=== PATIENT | female | born 1985 | race Asian ===

== ENCOUNTER 2017-12-22 21:14 | Emergency (ER) | payer OTHER ==
[~2017-12-22] VITALS: Ht 149.9 cm; Wt 58.2 kg
[2017-12-22] MEDS ORDERED: ALBU8.5H8 IH (21:26)
[2017-12-22] MEDS ORDERED: LORA10TA7 PO (21:26)
[2017-12-22] MEDS ORDERED: BECL10.6 IH (21:26)
[2017-12-22] MEDS ORDERED: IPRATROPIUM BROMIDE 0.5 MG/2.5 ML NEB SOLUTION NEB ONE (21:30)
[2017-12-22] MEDS ORDERED: ALBUTEROL SULFATE 5 MG/ML 20 ML NEB SOLN [BULK] NEB ONE (21:30)
[2017-12-22] MEDS ORDERED: 0.9% SODIUM CHLORIDE 5 ML NEB SOLUTION NEB ONE (21:34)
[2017-12-22] MEDS ORDERED: DEXAMETHASONE SOD PHOS 4 MG/ML 5 ML VIAL IM ONE (21:45)
[2017-12-22 22:59] VITALS: BP 136/78
== END 2017-12-22 23:00 | disposition home or self-care (01) ==
LOC: EMS 21:14
DX: J45.909 Unspecified asthma, uncomplicated (principal); Z88.1 Allergy status to other antibiotic agents; Z79.899 Other long term (current) drug therapy
CPT/HCPCS: 94644; 96372; 99285; J1100

== ENCOUNTER 2018-01-04 06:23 | Emergency (ER) | payer OTHER ==
[~2018-01-04] VITALS: Ht 149.9 cm; Wt 68.2 kg
[~2018-01-04 06:23] MED LIST: ALBU8.5H8 IH; BECL10.6 IH; LORA10TA7 PO
[2018-01-04] MEDS ORDERED: AUD NEB (06:34)
[2018-01-04] MEDS ORDERED: ALBUTEROL SULFATE 5 MG/ML 20 ML NEB SOLN [BULK] NEB ONE (07:00)
[2018-01-04] MEDS ORDERED: IPRATROPIUM BROMIDE 0.5 MG/2.5 ML NEB SOLUTION NEB ONE (07:00)
[2018-01-04] MEDS ORDERED: PredniSONE 20 MG TABLET PO ONE ×2 (07:00→07:15)
[2018-01-04 08:03] VITALS: BP 130/87
== END 2018-01-04 08:50 | disposition home or self-care (01) ==
LOC: EMS 06:23
DX: J45.901 Unspecified asthma with (acute) exacerbation (principal); Z88.8 Allergy status to other drugs, medicaments and biological substances
CPT/HCPCS: 94644; 99285; J7512

== ENCOUNTER 2018-11-30 07:21 | Emergency (ER) | payer OTHER ==
[~2018-11-30] VITALS: Ht 149.9 cm; Wt 67.3 kg
[~2018-11-30 07:21] MED LIST changes: +AUD NEB
[2018-11-30] MEDS ORDERED: ALBUTEROL SULFATE 2.5 MG/0.5 ML NEB SOLUTION NEB ONE (07:30)
[2018-11-30] MEDS ORDERED: IPRATROPIUM BROMIDE 0.5 MG/2.5 ML NEB SOLUTION NEB ONE ×2 (07:30→07:45)
[2018-11-30] MEDS ORDERED: PredniSONE 20 MG TABLET PO ONE (07:45)
[2018-11-30] MEDS ORDERED: ALBUTEROL SULFATE 5 MG/ML 20 ML NEB SOLN [BULK] NEB ONE (07:45)
[2018-11-30 09:50] VITALS: BP 128/89
== END 2018-11-30 10:11 | disposition home or self-care (01) ==
LOC: EMS 07:22
DX: J45.909 Unspecified asthma, uncomplicated (principal); Z79.899 Other long term (current) drug therapy; Z88.1 Allergy status to other antibiotic agents
CPT/HCPCS: 71045; 94640; 99285; J7512; 94644

== ENCOUNTER 2019-01-07 06:30 | Emergency (ER) | payer OTHER ==
[~2019-01-07] VITALS: Ht 149.9 cm; Wt 65.9 kg
[2019-01-07] MEDS ORDERED: PredniSONE 20 MG TABLET PO ONE (07:15)
[2019-01-07] MEDS ORDERED: IPRATROPIUM BROMIDE 0.5 MG/2.5 ML NEB SOLUTION NEB ONE (07:15)
[2019-01-07] MEDS ORDERED: ALBUTEROL SULFATE 5 MG/ML 20 ML NEB SOLN [BULK] NEB ONE (07:15)
[2019-01-07] MEDS ORDERED: 0.9% SODIUM CHLORIDE 15 ML NEB SOLUTION NEB ONE (07:54)
[2019-01-07 09:39] VITALS: BP 130/90
== END 2019-01-07 09:49 | disposition home or self-care (01) ==
LOC: EMS 06:30
DX: J45.909 Unspecified asthma, uncomplicated (principal); Z88.1 Allergy status to other antibiotic agents
CPT/HCPCS: 94644; 99285; J7512

== ENCOUNTER 2019-02-01 22:29 | Emergency (ER) | payer MEDICAID, OTHER ==
[~2019-02-01] VITALS: Ht 149.9 cm; Wt 67.3 kg
[2019-02-01] MEDS ORDERED: ALBUTEROL SULFATE 5 MG/ML 20 ML NEB SOLN [BULK] NEB ONE (23:00)
[2019-02-01] MEDS ORDERED: IPRATROPIUM BROMIDE 0.5 MG/2.5 ML NEB SOLUTION NEB ONE (23:00)
[2019-02-02] MEDS ORDERED: PredniSONE 20 MG TABLET PO ONE (01:30)
[2019-02-02 02:00] VITALS: BP 118/78
== END 2019-02-02 02:02 | disposition home or self-care (01) ==
LOC: EMS 22:29
DX: J45.901 Unspecified asthma with (acute) exacerbation (principal); Z79.899 Other long term (current) drug therapy; Z88.1 Allergy status to other antibiotic agents
CPT/HCPCS: 71046; 94640; 99283; J7512

== ENCOUNTER 2022-04-15 15:34 | Emergency (ER) | payer OTHER ==
[~2022-04-15] VITALS: Ht 124.5 cm; Wt 62.3 kg
[2022-04-15] MEDS ORDERED: CETI5TAB12 PO (15:40)
[2022-04-15] MEDS ORDERED: PredniSONE 20 MG TABLET PO ONE (15:45)
[2022-04-15] MEDS ORDERED: GuaiFENesin/D-METHORPHAN [SUGAR-FREE] 200-20MG/10 ML SYRUP UDCUP PO ONE (15:45)
[2022-04-15] MEDS ORDERED: ALBUTEROL SULFATE 2.5 MG/0.5 ML NEB SOLUTION NEB ONE (15:45)
[2022-04-15] MEDS ORDERED: IPRATROPIUM BROMIDE 0.5 MG/2.5 ML NEB SOLUTION NEB ONE (15:45)
[2022-04-15 16:58] LABS: COVID AG,FIA SOURCE NASOPHARYNGEAL
[2022-04-15 17:20] LABS: INFLUENZA TYPE A NEGATIVE FOR TYPE A (NEGATIVE); INFLUENZA TYPE B NEGATIVE FOR TYPE B (NEGATIVE)
[2022-04-15 17:56] VITALS: BP 129/85
[2022-04-15] MEDS ORDERED: PRED-554 PO (18:14)
[2022-04-15] MEDS ORDERED: AUD NEB (18:14)
[2022-04-15] MEDS ORDERED: ALBU8HFA IH (18:14)
[2022-04-15] MEDS ORDERED: GUAIFDM PO (18:14)
== END 2022-04-15 18:30 | disposition home or self-care (01) ==
LOC: EMS 15:36
DX: J45.901 Unspecified asthma with (acute) exacerbation (principal); N39.0 Urinary tract infection, site not specified; Z88.8 Allergy status to other drugs, medicaments and biological substances; Z20.822 Contact with and (suspected) exposure to COVID-19; Z98.890 Other specified postprocedural states
CPT/HCPCS: 99284; 71045; 87426; 87804; 94640; J7512; J7613

== ENCOUNTER 2022-08-08 20:52 | Emergency (ER) | payer OTHER ==
[~2022-08-08] VITALS: Ht 149.9 cm; Wt 60.5 kg
[~2022-08-08 20:52] MED LIST changes: +ALBU18HF12 IH; +CETI5TAB12 PO; +GUAIFDM PO; -LORA10TA7 PO; +PRED-554 PO
[2022-08-08 22:15] VITALS: BP 119/90; PULSE 68; RESP 17; TEMP 98.8
[2022-08-08 22:34] LABS: COVID AG,FIA SOURCE NASAL SWAB
[2022-08-08] MEDS ORDERED: ACETAMINOPHEN 500 MG TABLET PO ONE (22:45)
[2022-08-08] MEDS ORDERED: GuaiFENesin/D-METHORPHAN [SUGAR-FREE] 200-20MG/10 ML SYRUP UDCUP PO ONE (22:45)
[2022-08-08 22:58] LABS: INFLUENZA TYPE A NEGATIVE FOR TYPE A (NEGATIVE); INFLUENZA TYPE B NEGATIVE FOR TYPE B (NEGATIVE)
[2022-08-08] MEDS ORDERED: GUAIFDM PO (23:35)
[2022-08-08] MEDS ORDERED: ACET-66 PO (23:35)
[2022-08-08] MEDS ORDERED: BENZ-227 PO (23:35)
== END 2022-08-09 00:27 | disposition home or self-care (01) ==
LOC: EMS 21:03
DX: J06.9 Acute upper respiratory infection, unspecified (principal); J45.909 Unspecified asthma, uncomplicated; Z98.890 Other specified postprocedural states; Z20.822 Contact with and (suspected) exposure to COVID-19
CPT/HCPCS: 87804; 99283

== ENCOUNTER 2022-10-29 05:22 | Emergency (ER) | payer OTHER ==
[~2022-10-29] VITALS: Ht 149.9 cm; Wt 57.3 kg
[~2022-10-29 05:22] MED LIST changes: +ACET-66 PO; +ALBU2.5V39 NEB; -AUD NEB; +BENZ-227 PO
[2022-10-29 05:35] VITALS: TEMP 98
[2022-10-29] MEDS ORDERED: ALBUTEROL SULFATE 2.5 MG/0.5 ML NEB SOLUTION NEB ONE (06:30)
[2022-10-29] MEDS ORDERED: PredniSONE 20 MG TABLET PO ONE (06:30)
[2022-10-29] MEDS ORDERED: IPRATROPIUM BROMIDE 0.5 MG/2.5 ML NEB SOLUTION NEB ONE (06:30)
[2022-10-29] MEDS ORDERED: PRED-554 PO (06:35)
[2022-10-29] MEDS ORDERED: ALBU18HF12 IH (06:35)
[2022-10-29 06:41] VITALS: PULSE 76; RESP 16; O2SAT 98
[2022-10-29 06:45] VITALS: BP 119/84
[2022-10-29 06:56] VITALS: PULSE 90; RESP 16; O2SAT 100
== END 2022-10-29 07:01 | disposition home or self-care (01) ==
LOC: EMS 05:23
DX: J45.901 Unspecified asthma with (acute) exacerbation (principal); J02.9 Acute pharyngitis, unspecified; Z88.8 Allergy status to other drugs, medicaments and biological substances
CPT/HCPCS: 99283; 94640; J7512